=== PATIENT | female | born 1980 | race Caucasian/White ===

== ENCOUNTER 2017-09-14 12:20 | Emergency (ER) | payer MEDICAID, OTHER ==
[~2017-09-14] VITALS: Ht 170.2 cm; Wt 62.0 kg
[2017-09-14 14:50] VITALS: BP 112/61
== END 2017-09-14 16:00 | disposition left against medical advice (07) ==
LOC: ER 12:26
DX: R11.2 Nausea with vomiting, unspecified (principal); R30.0 Dysuria; R52 Pain, unspecified; C71.9 Malignant neoplasm of brain, unspecified; G40.909 Epilepsy, unspecified, not intractable, without status epilepticus; I10 Essential (primary) hypertension
CPT/HCPCS: 99283

== ENCOUNTER 2020-02-16 12:30 | Inpatient (IN) | payer OTHER ==
[~2020-02-16] VITALS: Ht 162.6 cm; Wt 65.8 kg
[2020-02-16 20:00] VITALS: BP 112/66
[2020-02-16 22:00] VITALS: BP 112/66
[2020-02-16] MEDS ORDERED: PROCHLORPERAZINE 10MG/2ML VIAL IV PRN (22:45)
[2020-02-16] MEDS ORDERED: ONDANSETRON HCL 4MG/2ML INJ IV PRN (22:45)
[2020-02-16] MEDS ORDERED: CLONIDINE 0.1MG TABLET PO PRN (22:45)
[2020-02-16] MEDS ORDERED: MAGNESIUM HYDROXIDE 400MG/5ML 30ML UDC PO PRN (22:45)
[2020-02-16] MEDS ORDERED: POLYVINYL ALCOHOL OPHTH DROPS 15ML BOTHEYE PRN (22:45)
[2020-02-16] MEDS ORDERED: MAGNESIUM CITRATE 300ML SOLUTION PO PRN (22:45)
[2020-02-16] MEDS ORDERED: LORAZEPAM 2MG/ML CPJ IV PRN (22:45)
[2020-02-16] MEDS ORDERED: NON FORMULARY PATIENT HOME MED XX SCH ×2 (22:45)
[2020-02-16] MEDS ORDERED: POLYETHYLENE GLYCOL 3350 (17GM) 1 DOSE PACK PO PRN (22:45)
[2020-02-16] MEDS: ACETAMINOPHEN 325MG TABLET PO SCH (23:52)
[2020-02-17] MEDS: OXYCODONE HCL 10MG TABLET SR 12HR PO PRN ×4 (00:35→22:16)
[2020-02-17] MEDS ORDERED: LURA20TA PO (00:51)
[2020-02-17] MEDS ORDERED: LEVE1000 PO (00:51)
[2020-02-17] MEDS ORDERED: LORA2TAB95 PO (00:51)
[2020-02-17] MEDS ORDERED: GABA800T97 PO (00:51)
[2020-02-17] MEDS ORDERED: ONDA4TAB5 PO (00:51)
[2020-02-17] MEDS ORDERED: LACO100T2 PO (00:51)
[2020-02-17] MEDS ORDERED: HYDR-3281 PO (00:51)
[2020-02-17] MEDS ORDERED: LAM2 PO (00:51)
[2020-02-17] MEDS: DIPHENHYDRAMINE HCL/ZINC ACET 28 GM CREAM TOP PRN ×2 (04:38→09:09)
[2020-02-17] MEDS: ACETAMINOPHEN 325MG TABLET PO SCH ×3 (06:28→18:10)
[2020-02-17 07:09] LABS: BASOPHILS % 0.7 % (0.0-2.0); EOSINOPHILS % 2.4 % (0.0-5.0); HEMOGLOBIN. 8.9 g/dL (12.0-16.0); LYMPHOCYTES % 27.7 % (20.0-50.0); MEAN CORPUSCULAR HEMOGLOBIN 33.7 pg (28.0-32.0); MEAN CORPUSCULAR VOLUME 98.7 fL (81.0-99.0); MEAN PLATELET VOLUME 7.1 fl (7.4-10.4); NEUTROPHILS % 56.2 % (40.0-76.0); PLATELET 378 x1000/uL (130-400); RED BLOOD CELL COUNT 2.63 mill/uL (4.2-5.4)
[2020-02-17 07:26] LABS: CHLORIDE 107 mEq/L (98-107)
[2020-02-17 08:00] VITALS: BP 100/65
[2020-02-17] MEDS: LACOSAMIDE 100 MG PO SCH ×2 (09:02→20:49)
[2020-02-17] MEDS: LURASIDONE 20 MG PO SCH (09:03)
[2020-02-17] MEDS: DOCUSATE SODIUM 100MG CAPSULE PO SCH ×2 (09:05→17:00)
[2020-02-17] MEDS: OXYCODONE HCL 5MG TABLET PO PRN ×2 (09:06→18:10)
[2020-02-17] MEDS: LEVETIRACETAM 500MG TABLET PO SCH ×2 (09:07→20:48)
[2020-02-17] MEDS: LAMOTRIGINE 100MG TABLET PO SCH ×2 (09:07→20:48)
[2020-02-17] MEDS: DOXYCYCLINE HYCLATE 100MG CAPSULE PO SCH ×2 (09:08→20:49)
[2020-02-17] MEDS: HEPARIN 5000 UNITS/ML VIAL SUBCUT SCH ×2 (09:08→20:50)
[2020-02-17] MEDS: MUPIROCIN 2% OINT 22GM TOP SCH (09:09)
[2020-02-17] MEDS: POLYETHYLENE GLYCOL 3350 (17GM) 1 DOSE PACK PO SCH (09:10)
[2020-02-17] MEDS ORDERED: ONDANSETRON HCL 4MG TABLET PO PRN (13:00)
[2020-02-17 20:00] VITALS: BP 107/69
[2020-02-17] MEDS: LORAZEPAM 1MG TABLET PO PRN (20:49)
[2020-02-18] MEDS: ACETAMINOPHEN 325MG TABLET PO SCH ×4 (00:14→18:12)
[2020-02-18] MEDS: OXYCODONE HCL 10MG TABLET SR 12HR PO PRN ×2 (05:45→16:34)
[2020-02-18 06:30] LABS: BASOPHILS % 0.7 % (0.0-2.0); EOSINOPHILS % 1.9 % (0.0-5.0); HEMATOCRIT. 26.1 % (36.0-48.0); HEMOGLOBIN. 8.9 g/dL (12.0-16.0); LYMPHOCYTES % 27.8 % (20.0-50.0); MEAN CORPUSCULAR HEMOGLOBIN 33.5 pg (28.0-32.0); MEAN CORPUSCULAR VOLUME 98.7 fL (81.0-99.0); MEAN PLATELET VOLUME 7.3 fl (7.4-10.4); NEUTROPHILS % 56.6 % (40.0-76.0); PLATELET 406 x1000/uL (130-400); RED BLOOD CELL COUNT 2.65 mill/uL (4.2-5.4); RED CELL DISTRIBUTION WIDTH 15.7 % (11.6-14.6)
[2020-02-18 06:55] LABS: CHLORIDE 106 mEq/L (98-107)
[2020-02-18 07:03] LABS: PHOSPHORUS 4.8 mg/dL (2.5-4.9)
[2020-02-18 07:04] LABS: TOTAL IRON BINDING CAPACITY 206 ug/dL (250-450)
[2020-02-18] MEDS: LORAZEPAM 1MG TABLET PO PRN (07:07)
[2020-02-18 07:10] LABS: FOLIC ACID (FOLATE) SERUM 10.1 ng/mL (>5.38)
[2020-02-18] MEDS: LURASIDONE 20 MG PO SCH (07:52)
[2020-02-18 08:00] VITALS: BP 95/50
[2020-02-18] MEDS: POLYETHYLENE GLYCOL 3350 (17GM) 1 DOSE PACK PO SCH (08:50)
[2020-02-18] MEDS: FLUOXETINE HCL 20MG CAPSULE PO SCH (08:50)
[2020-02-18] MEDS: DOCUSATE SODIUM 100MG CAPSULE PO SCH ×2 (08:50→16:34)
[2020-02-18] MEDS: LAMOTRIGINE 100MG TABLET PO SCH ×2 (08:51→20:36)
[2020-02-18] MEDS: MUPIROCIN 2% OINT 22GM TOP SCH (08:51)
[2020-02-18] MEDS: DOXYCYCLINE HYCLATE 100MG CAPSULE PO SCH ×2 (08:51→20:36)
[2020-02-18] MEDS: MAGNESIUM OXIDE 400MG TABLET PO SCH (08:51)
[2020-02-18] MEDS: GABAPENTIN 400MG CAPSULE PO SCH (08:51)
[2020-02-18] MEDS: LEVETIRACETAM 500MG TABLET PO SCH ×2 (08:51→20:36)
[2020-02-18] MEDS: HEPARIN 5000 UNITS/ML VIAL SUBCUT SCH ×2 (08:52→20:43)
[2020-02-18] MEDS: LACOSAMIDE 100 MG PO SCH ×2 (08:53→20:36)
[2020-02-18] MEDS: OXYCODONE HCL 5MG TABLET PO PRN ×2 (11:55→21:03)
[2020-02-18] MEDS: FERROUS SULFATE 325MG TABLET PO SCH ×2 (11:57→16:34)
[2020-02-18] MEDS ORDERED: LACTULOSE 20G/30ML UDC PO PRN (13:15)
[2020-02-18] MEDS ORDERED: NA PHOS,M-B/NA PHOS,DI-BA ENEMA 118ML PR PRN (13:15)
[2020-02-18] MEDS ORDERED: BISACODYL 5MG TABLET PO PRN (13:15)
[2020-02-18 20:00] VITALS: BP 106/72
[2020-02-18] MEDS: BISMUTH SUBSALICYLATE 262 MG/15 ML-120ML BOTTLE PO PRN (20:37)
[2020-02-18 23:06] VITALS: BP 110/72
[2020-02-19] MEDS: ACETAMINOPHEN 325MG TABLET PO SCH ×5 (01:29→23:02)
[2020-02-19] MEDS: LURASIDONE 20 MG PO SCH ×2 (07:48→21:52)
[2020-02-19] MEDS: OXYCODONE HCL 10MG TABLET SR 12HR PO PRN ×2 (07:50→13:24)
[2020-02-19 08:25] VITALS: BP 106/60
[2020-02-19] MEDS: MUPIROCIN 2% OINT 22GM TOP SCH (09:19)
[2020-02-19] MEDS: POLYETHYLENE GLYCOL 3350 (17GM) 1 DOSE PACK PO SCH (09:20)
[2020-02-19] MEDS: LACOSAMIDE 100 MG PO SCH ×2 (09:20→21:53)
[2020-02-19] MEDS: ASCORBIC ACID 500 MG TABLET PO SCH (09:20)
[2020-02-19] MEDS: LEVETIRACETAM 500MG TABLET PO SCH ×2 (09:20→21:50)
[2020-02-19] MEDS: DOCUSATE SODIUM 100MG CAPSULE PO SCH ×2 (09:21→17:20)
[2020-02-19] MEDS: FLUOXETINE HCL 20MG CAPSULE PO SCH (09:21)
[2020-02-19] MEDS: MAGNESIUM OXIDE 400MG TABLET PO SCH (09:21)
[2020-02-19] MEDS: LAMOTRIGINE 100MG TABLET PO SCH ×2 (09:21→21:51)
[2020-02-19] MEDS: FOLIC ACID 1MG TABLET PO SCH (09:21)
[2020-02-19] MEDS: GABAPENTIN 400MG CAPSULE PO SCH (09:21)
[2020-02-19] MEDS: THIAMINE HCL 100MG TABLET PO SCH (09:21)
[2020-02-19] MEDS: FERROUS SULFATE 325MG TABLET PO SCH ×3 (09:21→17:20)
[2020-02-19] MEDS: DOXYCYCLINE HYCLATE 100MG CAPSULE PO SCH ×2 (09:21→21:50)
[2020-02-19] MEDS: MULTIVITAMINS,THER W-MINERALS TABLET PO SCH (09:22)
[2020-02-19] MEDS: HEPARIN 5000 UNITS/ML VIAL SUBCUT SCH ×2 (09:22→21:53)
[2020-02-19 13:20] VITALS: BP 123/75
[2020-02-19] MEDS ORDERED: LORAZEPAM 2MG/ML CPJ IV PRN (13:45)
[2020-02-19] MEDS: LORAZEPAM 1MG TABLET PO PRN ×2 (15:26→23:45)
[2020-02-19] MEDS ORDERED: GADOBENATE DIMEGLUMINE 529 MG/ML 10ML IV ONE (17:43)
[2020-02-19] MEDS: BISMUTH SUBSALICYLATE 262 MG/15 ML-120ML BOTTLE PO PRN (19:42)
[2020-02-19 20:00] VITALS: BP 114/69
[2020-02-19] MEDS: MORPHINE SULFATE 15MG TABLET SR PO SCH (21:51)
[2020-02-19] MEDS: ONDANSETRON HCL 4MG TABLET PO PRN (23:02)
[2020-02-19 23:52] VITALS: BP 106/62
[2020-02-20] MEDS: ACETAMINOPHEN 325MG TABLET PO SCH ×3 (05:54→18:00)
[2020-02-20 07:04] LABS: CHLORIDE 105 mEq/L (98-107)
[2020-02-20 07:26] LABS: BASOPHILS % 1.1 % (0.0-2.0); EOSINOPHILS % 1.9 % (0.0-5.0); HEMATOCRIT. 26.4 % (36.0-48.0); MEAN CORPUSCULAR HEMOGLOBIN 33.6 pg (28.0-32.0); MEAN CORPUSCULAR VOLUME 99.1 fL (81.0-99.0); MEAN PLATELET VOLUME 7.9 fl (7.4-10.4); MONOCYTES % 10.6 % (2.0-8.0); NEUTROPHILS % 49.4 % (40.0-76.0); PLATELET 442 x1000/uL (130-400); RED BLOOD CELL COUNT 2.67 mill/uL (4.2-5.4); RED CELL DISTRIBUTION WIDTH 15.1 % (11.6-14.6)
[2020-02-20 07:47] VITALS: BP 106/65
[2020-02-20] MEDS: OXYCODONE HCL 10MG TABLET SR 12HR PO PRN ×2 (08:09→13:01)
[2020-02-20] MEDS: BISMUTH SUBSALICYLATE 262 MG/15 ML-120ML BOTTLE PO PRN ×2 (08:26→21:47)
[2020-02-20] MEDS: MUPIROCIN 2% OINT 22GM TOP SCH (09:00)
[2020-02-20] MEDS: HEPARIN 5000 UNITS/ML VIAL SUBCUT SCH ×2 (09:00→21:49)
[2020-02-20] MEDS: MAGNESIUM OXIDE 400MG TABLET PO SCH (09:00)
[2020-02-20] MEDS: MORPHINE SULFATE 15MG TABLET SR PO SCH (09:00)
[2020-02-20] MEDS: LACOSAMIDE 100 MG PO SCH ×2 (09:00→21:50)
[2020-02-20] MEDS: GABAPENTIN 400MG CAPSULE PO SCH ×2 (10:29→18:44)
[2020-02-20] MEDS: FLUOXETINE HCL 20MG CAPSULE PO SCH (10:30)
[2020-02-20] MEDS: MULTIVITAMINS,THER W-MINERALS TABLET PO SCH (10:30)
[2020-02-20] MEDS: DOCUSATE SODIUM 100MG CAPSULE PO SCH ×2 (10:30→18:46)
[2020-02-20] MEDS: ASCORBIC ACID 500 MG TABLET PO SCH (10:31)
[2020-02-20] MEDS: LAMOTRIGINE 100MG TABLET PO SCH ×2 (10:31→21:46)
[2020-02-20] MEDS: DOXYCYCLINE HYCLATE 100MG CAPSULE PO SCH ×2 (10:31→21:46)
[2020-02-20] MEDS: LEVETIRACETAM 500MG TABLET PO SCH ×2 (10:32→21:47)
[2020-02-20] MEDS: THIAMINE HCL 100MG TABLET PO SCH (10:32)
[2020-02-20] MEDS: FERROUS SULFATE 325MG TABLET PO SCH ×3 (10:33→18:46)
[2020-02-20] MEDS: FOLIC ACID 1MG TABLET PO SCH (10:33)
[2020-02-20] MEDS: POLYETHYLENE GLYCOL 3350 (17GM) 1 DOSE PACK PO SCH (10:35)
[2020-02-20] MEDS: LORAZEPAM 1MG TABLET PO PRN (11:04)
[2020-02-20] MEDS ORDERED: NALOXONE HCL 0.4 MG/ML 1ML VIAL IV PRN (15:30)
[2020-02-20] MEDS: HYDROCODONE/ACETAMINOPHEN 10/325MG TABLET PO PRN (18:45)
[2020-02-20 20:00] VITALS: BP 99/66
[2020-02-20] MEDS: OXYCODONE HCL 10MG TABLET SR 12HR PO SCH (21:47)
[2020-02-21] MEDS: LORAZEPAM 1MG TABLET PO PRN ×2 (01:46→22:17)
[2020-02-21] MEDS: ACETAMINOPHEN 325MG TABLET PO SCH ×4 (06:00→18:00)
[2020-02-21] MEDS: OXYCODONE HCL 10MG TABLET SR 12HR PO SCH ×3 (06:04→21:31)
[2020-02-21 07:57] VITALS: BP 112/79
[2020-02-21] MEDS: LURASIDONE 20 MG PO SCH (08:00)
[2020-02-21] MEDS: HEPARIN 5000 UNITS/ML VIAL SUBCUT SCH ×2 (09:00→20:49)
[2020-02-21] MEDS: ASCORBIC ACID 500 MG TABLET PO SCH (09:00)
[2020-02-21] MEDS: FOLIC ACID 1MG TABLET PO SCH (09:00)
[2020-02-21] MEDS: FERROUS SULFATE 325MG TABLET PO SCH ×3 (09:00→17:18)
[2020-02-21] MEDS: MULTIVITAMINS,THER W-MINERALS TABLET PO SCH (09:00)
[2020-02-21] MEDS: LACOSAMIDE 100 MG PO SCH ×2 (09:00→20:51)
[2020-02-21] MEDS: THIAMINE HCL 100MG TABLET PO SCH (09:00)
[2020-02-21] MEDS: DOXYCYCLINE HYCLATE 100MG CAPSULE PO SCH ×2 (09:00→20:48)
[2020-02-21] MEDS: MUPIROCIN 2% OINT 22GM TOP SCH (09:00)
[2020-02-21] MEDS: GABAPENTIN 400MG CAPSULE PO SCH ×3 (09:00→17:18)
[2020-02-21] MEDS: LAMOTRIGINE 100MG TABLET PO SCH ×2 (09:00→20:48)
[2020-02-21] MEDS: MAGNESIUM OXIDE 400MG TABLET PO SCH (09:00)
[2020-02-21] MEDS: DOCUSATE SODIUM 100MG CAPSULE PO SCH (09:00)
[2020-02-21] MEDS: POLYETHYLENE GLYCOL 3350 (17GM) 1 DOSE PACK PO SCH (09:00)
[2020-02-21] MEDS: FLUOXETINE HCL 20MG CAPSULE PO SCH (09:00)
[2020-02-21] MEDS: LEVETIRACETAM 500MG TABLET PO SCH ×2 (09:00→20:50)
[2020-02-21] MEDS: HYDROCODONE/ACETAMINOPHEN 10/325MG TABLET PO PRN (09:49)
[2020-02-21] MEDS ORDERED: DOCUSATE SODIUM 100MG CAPSULE PO PRN (14:30)
[2020-02-21 20:00] VITALS: BP 109/69
[2020-02-22] MEDS: HYDROCODONE/ACETAMINOPHEN 10/325MG TABLET PO PRN ×4 (01:00→20:34)
[2020-02-22] MEDS: OXYCODONE HCL 10MG TABLET SR 12HR PO SCH ×3 (05:08→20:23)
[2020-02-22] MEDS: ACETAMINOPHEN 325MG TABLET PO SCH ×5 (06:00→23:16)
[2020-02-22 08:00] VITALS: BP 94/57
[2020-02-22] MEDS: POLYETHYLENE GLYCOL 3350 (17GM) 1 DOSE PACK PO SCH ×2 (09:00→09:43)
[2020-02-22] MEDS: LACOSAMIDE 100 MG PO SCH ×2 (09:42→20:25)
[2020-02-22] MEDS: LURASIDONE 20 MG PO SCH (09:42)
[2020-02-22] MEDS: MUPIROCIN 2% OINT 22GM TOP SCH (09:42)
[2020-02-22] MEDS: LEVETIRACETAM 500MG TABLET PO SCH ×2 (09:43→20:24)
[2020-02-22] MEDS: GABAPENTIN 400MG CAPSULE PO SCH ×3 (09:43→18:04)
[2020-02-22] MEDS: MULTIVITAMINS,THER W-MINERALS TABLET PO SCH (09:43)
[2020-02-22] MEDS: ASCORBIC ACID 500 MG TABLET PO SCH (09:43)
[2020-02-22] MEDS: DOXYCYCLINE HYCLATE 100MG CAPSULE PO SCH ×2 (09:43→20:25)
[2020-02-22] MEDS: FOLIC ACID 1MG TABLET PO SCH (09:43)
[2020-02-22] MEDS: LAMOTRIGINE 100MG TABLET PO SCH ×2 (09:43→20:24)
[2020-02-22] MEDS: THIAMINE HCL 100MG TABLET PO SCH (09:43)
[2020-02-22] MEDS: FERROUS SULFATE 325MG TABLET PO SCH ×3 (09:43→18:04)
[2020-02-22] MEDS: MAGNESIUM OXIDE 400MG TABLET PO SCH (09:43)
[2020-02-22] MEDS: HEPARIN 5000 UNITS/ML VIAL SUBCUT SCH ×2 (09:43→20:26)
[2020-02-22] MEDS: FLUOXETINE HCL 20MG CAPSULE PO SCH (09:43)
[2020-02-22 13:07] LABS: 25-HYDROXY VITAMIN D3 9.1 ng/mL (.)
[2020-02-22] MEDS: BACLOFEN 10MG TABLET PO PRN ×2 (13:15→20:33)
[2020-02-22] MEDS: BISMUTH SUBSALICYLATE 262 MG/15 ML-120ML BOTTLE PO PRN ×3 (16:16→23:05)
[2020-02-22 20:00] VITALS: BP 104/65
[2020-02-23] MEDS: HYDROCODONE/ACETAMINOPHEN 10/325MG TABLET PO PRN ×5 (00:36→22:29)
[2020-02-23] MEDS: OXYCODONE HCL 10MG TABLET SR 12HR PO SCH ×3 (04:56→20:35)
[2020-02-23] MEDS: ACETAMINOPHEN 325MG TABLET PO SCH ×3 (06:12→17:25)
[2020-02-23] MEDS: BACLOFEN 10MG TABLET PO PRN ×3 (07:24→20:38)
[2020-02-23 08:44] VITALS: BP 109/70
[2020-02-23] MEDS: FERROUS SULFATE 325MG TABLET PO SCH ×3 (08:47→17:25)
[2020-02-23] MEDS: DOXYCYCLINE HYCLATE 100MG CAPSULE PO SCH ×2 (08:47→20:34)
[2020-02-23] MEDS: ASCORBIC ACID 500 MG TABLET PO SCH (08:47)
[2020-02-23] MEDS: FLUOXETINE HCL 20MG CAPSULE PO SCH (08:47)
[2020-02-23] MEDS: HEPARIN 5000 UNITS/ML VIAL SUBCUT SCH ×2 (08:47→20:34)
[2020-02-23] MEDS: MULTIVITAMINS,THER W-MINERALS TABLET PO SCH (08:47)
[2020-02-23] MEDS: MAGNESIUM OXIDE 400MG TABLET PO SCH (08:47)
[2020-02-23] MEDS: THIAMINE HCL 100MG TABLET PO SCH (08:47)
[2020-02-23] MEDS: GABAPENTIN 400MG CAPSULE PO SCH ×3 (08:48→17:25)
[2020-02-23] MEDS: LAMOTRIGINE 100MG TABLET PO SCH ×2 (08:48→20:34)
[2020-02-23] MEDS: FOLIC ACID 1MG TABLET PO SCH (08:48)
[2020-02-23] MEDS: LEVETIRACETAM 500MG TABLET PO SCH ×2 (08:48→20:34)
[2020-02-23] MEDS: LURASIDONE 20 MG PO SCH (08:49)
[2020-02-23] MEDS: POLYETHYLENE GLYCOL 3350 (17GM) 1 DOSE PACK PO SCH (08:59)
[2020-02-23] MEDS: LACOSAMIDE 100 MG PO SCH ×2 (09:00→20:38)
[2020-02-23] MEDS: MUPIROCIN 2% OINT 22GM TOP SCH (09:01)
[2020-02-23] MEDS: ONDANSETRON HCL 4MG TABLET PO PRN (10:17)
[2020-02-23] MEDS: BISMUTH SUBSALICYLATE 262 MG/15 ML-120ML BOTTLE PO PRN (14:25)
[2020-02-23] MEDS: LOPERAMIDE HCL 2MG CAPSULE PO PRN (18:53)
[2020-02-23 20:00] VITALS: BP 99/62
[2020-02-24] MEDS: HYDROCODONE/ACETAMINOPHEN 10/325MG TABLET PO PRN ×5 (02:29→22:42)
[2020-02-24] MEDS: OXYCODONE HCL 10MG TABLET SR 12HR PO SCH ×3 (04:33→21:17)
[2020-02-24] MEDS: LOPERAMIDE HCL 2MG CAPSULE PO PRN (04:33)
[2020-02-24] MEDS: ACETAMINOPHEN 325MG TABLET PO SCH ×4 (06:00→17:57)
[2020-02-24 08:00] VITALS: BP 89/52
[2020-02-24] MEDS: HEPARIN 5000 UNITS/ML VIAL SUBCUT SCH ×2 (08:02→21:17)
[2020-02-24] MEDS: MULTIVITAMINS,THER W-MINERALS TABLET PO SCH (08:02)
[2020-02-24] MEDS: THIAMINE HCL 100MG TABLET PO SCH (08:02)
[2020-02-24] MEDS: MAGNESIUM OXIDE 400MG TABLET PO SCH (08:03)
[2020-02-24] MEDS: FOLIC ACID 1MG TABLET PO SCH (08:03)
[2020-02-24] MEDS: FLUOXETINE HCL 20MG CAPSULE PO SCH (08:03)
[2020-02-24] MEDS: LEVETIRACETAM 500MG TABLET PO SCH ×2 (08:03→21:17)
[2020-02-24] MEDS: LAMOTRIGINE 100MG TABLET PO SCH ×2 (08:03→21:17)
[2020-02-24] MEDS: LURASIDONE 20 MG PO SCH (08:07)
[2020-02-24] MEDS: FERROUS SULFATE 325MG TABLET PO SCH ×3 (08:07→16:59)
[2020-02-24] MEDS: ASCORBIC ACID 500 MG TABLET PO SCH (08:07)
[2020-02-24] MEDS: MUPIROCIN 2% OINT 22GM TOP SCH (08:07)
[2020-02-24] MEDS: GABAPENTIN 400MG CAPSULE PO SCH ×3 (08:07→16:59)
[2020-02-24] MEDS: LACOSAMIDE 100 MG PO SCH ×2 (08:08→22:25)
[2020-02-24] MEDS: POLYETHYLENE GLYCOL 3350 (17GM) 1 DOSE PACK PO SCH (08:13)
[2020-02-24] MEDS: ONDANSETRON HCL 4MG TABLET PO PRN (17:57)
[2020-02-24] MEDS: BACLOFEN 10MG TABLET PO PRN (19:00)
[2020-02-24 19:40] VITALS: BP 106/64
[2020-02-24] MEDS: BISMUTH SUBSALICYLATE 262 MG/15 ML-120ML BOTTLE PO PRN (22:10)
[2020-02-24] MEDS ORDERED: LORAZEPAM 1MG TABLET PO PRN (23:15)
[2020-02-25] MEDS: BACLOFEN 10MG TABLET PO PRN ×3 (00:38→17:12)
[2020-02-25] MEDS: ACETAMINOPHEN 325MG TABLET PO SCH ×4 (00:39→17:06)
[2020-02-25] MEDS: HYDROCODONE/ACETAMINOPHEN 10/325MG TABLET PO PRN ×3 (03:41→23:41)
[2020-02-25] MEDS: OXYCODONE HCL 10MG TABLET SR 12HR PO SCH ×3 (06:12→21:27)
[2020-02-25 07:05] LABS: CHLORIDE 106 mEq/L (98-107)
[2020-02-25 07:07] LABS: BASOPHILS % 1.1 % (0.0-2.0); EOSINOPHILS % 2.7 % (0.0-5.0); HEMATOCRIT. 27.7 % (36.0-48.0); HEMOGLOBIN. 9.3 g/dL (12.0-16.0); LYMPHOCYTES % 41.4 % (20.0-50.0); MEAN CORPUSCULAR HEMOGLOBIN 33.4 pg (28.0-32.0); MEAN CORPUSCULAR VOLUME 99.3 fL (81.0-99.0); MEAN PLATELET VOLUME 7.7 fl (7.4-10.4); MONOCYTES % 9.2 % (2.0-8.0); NEUTROPHILS % 45.6 % (40.0-76.0); PLATELET 418 x1000/uL (130-400); RED BLOOD CELL COUNT 2.79 mill/uL (4.2-5.4); RED CELL DISTRIBUTION WIDTH 15.2 % (11.6-14.6)
[2020-02-25 08:07] VITALS: BP 83/44
[2020-02-25] MEDS: POLYETHYLENE GLYCOL 3350 (17GM) 1 DOSE PACK PO SCH (09:00)
[2020-02-25] MEDS: LURASIDONE 20 MG PO SCH (09:19)
[2020-02-25] MEDS: THIAMINE HCL 100MG TABLET PO SCH (09:20)
[2020-02-25] MEDS: MAGNESIUM OXIDE 400MG TABLET PO SCH (09:20)
[2020-02-25] MEDS: MULTIVITAMINS,THER W-MINERALS TABLET PO SCH (09:20)
[2020-02-25] MEDS: LAMOTRIGINE 100MG TABLET PO SCH ×2 (09:20→21:25)
[2020-02-25] MEDS: ASCORBIC ACID 500 MG TABLET PO SCH (09:20)
[2020-02-25] MEDS: FOLIC ACID 1MG TABLET PO SCH (09:20)
[2020-02-25] MEDS: GABAPENTIN 400MG CAPSULE PO SCH ×3 (09:21→17:06)
[2020-02-25] MEDS: FERROUS SULFATE 325MG TABLET PO SCH ×3 (09:21→17:06)
[2020-02-25] MEDS: LEVETIRACETAM 500MG TABLET PO SCH ×2 (09:21→21:27)
[2020-02-25] MEDS: MUPIROCIN 2% OINT 22GM TOP SCH (09:22)
[2020-02-25] MEDS: FLUOXETINE HCL 20MG CAPSULE PO SCH (09:22)
[2020-02-25] MEDS: HEPARIN 5000 UNITS/ML VIAL SUBCUT SCH ×2 (09:22→21:28)
[2020-02-25] MEDS: LACOSAMIDE 100 MG PO SCH ×2 (09:22→21:25)
[2020-02-25 13:29] LABS: CLARITY URINE CLEAR (CLEAR); COLOR URINE YELLOW (YELLOW); KETONES URINE NEGATIVE (NEGATIVE); LEUKOCYTE ESTERASE URINE NEGATIVE (NEGATIVE); NITRITE URINE NEGATIVE (NEGATIVE); OCCULT BLOOD URINE NEGATIVE (NEGATIVE); PROTEIN URINE NEGATIVE (NEGATIVE); UROBILINOGEN URINE 0.2 E.U./dL (0.2-1.0)
[2020-02-25 20:05] VITALS: BP 100/56
[2020-02-26] MEDS: HYDROCODONE/ACETAMINOPHEN 10/325MG TABLET PO PRN ×2 (03:43→10:42)
[2020-02-26] MEDS: OXYCODONE HCL 10MG TABLET SR 12HR PO SCH ×2 (05:59→12:58)
[2020-02-26] MEDS: ACETAMINOPHEN 325MG TABLET PO SCH ×3 (06:05→12:53)
[2020-02-26 07:50] VITALS: BP 104/56
[2020-02-26 08:07] VITALS: BP 104/56
[2020-02-26] MEDS: THIAMINE HCL 100MG TABLET PO SCH (09:01)
[2020-02-26] MEDS: LEVETIRACETAM 500MG TABLET PO SCH (09:02)
[2020-02-26] MEDS: MULTIVITAMINS,THER W-MINERALS TABLET PO SCH (09:02)
[2020-02-26] MEDS: GABAPENTIN 400MG CAPSULE PO SCH ×2 (09:03→12:53)
[2020-02-26] MEDS: MAGNESIUM OXIDE 400MG TABLET PO SCH (09:03)
[2020-02-26] MEDS: HEPARIN 5000 UNITS/ML VIAL SUBCUT SCH (09:03)
[2020-02-26] MEDS: POLYETHYLENE GLYCOL 3350 (17GM) 1 DOSE PACK PO SCH (09:03)
[2020-02-26] MEDS: FLUOXETINE HCL 20MG CAPSULE PO SCH (09:04)
[2020-02-26] MEDS: FOLIC ACID 1MG TABLET PO SCH (09:04)
[2020-02-26] MEDS: FERROUS SULFATE 325MG TABLET PO SCH ×2 (09:04→12:53)
[2020-02-26] MEDS: LAMOTRIGINE 100MG TABLET PO SCH (09:04)
[2020-02-26] MEDS: ASCORBIC ACID 500 MG TABLET PO SCH (09:04)
[2020-02-26] MEDS: LURASIDONE 20 MG PO SCH (09:06)
[2020-02-26] MEDS: MUPIROCIN 2% OINT 22GM TOP SCH (09:47)
[2020-02-26] MEDS: LACOSAMIDE 100 MG PO SCH (10:31)
[2020-02-26] MEDS: ONDANSETRON HCL 4MG TABLET PO PRN (10:41)
[2020-02-26] MEDS ORDERED: LACO100T2 PO (12:17)
[2020-02-26] MEDS ORDERED: LEVE1000 PO (12:17)
[2020-02-26] MEDS ORDERED: BACL-141 PO (12:17)
[2020-02-26] MEDS ORDERED: ONDA4TAB5 PO (12:17)
[2020-02-26] MEDS ORDERED: GABA800T97 PO (12:17)
[2020-02-26] MEDS ORDERED: LURA20TA PO (12:17)
[2020-02-26] MEDS ORDERED: LAM2 PO (12:17)
[2020-02-26] MEDS ORDERED: HYDR-4009 PO (13:01)
[2020-02-26] MEDS ORDERED: OXYC10TA58 PO (13:01)
[2020-02-26] MEDS ORDERED: THIA100T72 PO (13:11)
[2020-02-26] MEDS ORDERED: TOPUD PO (13:11)
[2020-02-26] MEDS ORDERED: LORA-250 PO (13:11)
[2020-02-26] MEDS ORDERED: FERR325T23 PO (13:11)
[2020-02-26] MEDS ORDERED: FLUO20CA39 PO (13:11)
[2020-02-26] MEDS ORDERED: ASCO500T20 PO (13:11)
[2020-02-26] MEDS ORDERED: DOCU-150 PO (13:11)
[2020-02-26 14:32] VITALS: BP 112/61
== END 2020-02-26 16:50 | disposition home health service (06) | DRG 58 ==
LOC: UNDOADMIN 12:30
PROVIDERS: ADMIT Physical Medicine & Rehabilitation Spinal Cord Injury Medicine; ATTEND Family Medicine Adult Medicine
DX: D32.9 Benign neoplasm of meninges, unspecified (principal); T81.30XA Disruption of wound, unspecified, initial encounter; D64.9 Anemia, unspecified; E43 Unspecified severe protein-calorie malnutrition; E87.6 Hypokalemia; F10.20 Alcohol dependence, uncomplicated; F20.9 Schizophrenia, unspecified; F31.9 Bipolar disorder, unspecified; G40.909 Epilepsy, unspecified, not intractable, without status epilepticus; G81.91 Hemiplegia, unspecified affecting right dominant side; K59.00 Constipation, unspecified; G93.89 Other specified disorders of brain; R26.89 Other abnormalities of gait and mobility; Z60.2 Problems related to living alone; R20.0 Anesthesia of skin; Y83.8 Other surgical procedures as the cause of abnormal reaction of the patient, or of later complication, without mention of misadventure at the time of the procedure; R11.0 Nausea; M62.838 Other muscle spasm; R53.81 Other malaise; R73.9 Hyperglycemia, unspecified; R51 Headache; Z79.899 Other long term (current) drug therapy; Z88.8 Allergy status to other drugs, medicaments and biological substances; Z86.14 Personal history of Methicillin resistant Staphylococcus aureus infection; Z86.011 Personal history of benign neoplasm of the brain; Y92.89 Other specified places as the place of occurrence of the external cause; Z87.891 Personal history of nicotine dependence; Z68.24 Body mass index [BMI] 24.0-24.9, adult
CPT/HCPCS: 36415; 70553; 80048; 80053; 81003; 82040; 82306; 82607; 82728; 82746; 83036; 83540; 83550; 83735; 84100; 84134; 84443; 85025; 92523; 92610; 93970; 97110; 97112; 97116; 97162; 97166; 97530; 97535; A9577; J1644; Q0162

== ENCOUNTER 2023-09-11 17:56 | Emergency (ER) | payer MEDICAID, OTHER ==
[~2023-09-11] VITALS: Ht 162.6 cm; Wt 68.0 kg
[~2023-09-11 17:56] MED LIST: ASCO500T20 PO; BACL-141 PO; DOCU-150 PO; FERR325T23 PO; FLUO20CA39 PO; GABA800T97 PO; HYDR-4009 PO; HYDR-4346 PO; LACO100T2 PO; LAM2 PO; LEVE1000 PO; LORA-250 PO; LURA20TA PO; ONDA4TAB5 PO; OXYC10TA58 PO; THIA100T72 PO; TOPUD PO
[2023-09-11 18:03] VITALS: O2SAT 97
[2023-09-11 18:30] VITALS: BP 103/72; PULSE 80; RESP 11; TEMP 98.9
[2023-09-11 19:44] LABS: BASOPHILS % 0.6 % (0.0-2.0); EOSINOPHILS % 4.2 % (0.0-5.0); HEMATOCRIT. 38.3 % (36.0-48.0); HEMOGLOBIN. 12.8 g/dL (12.0-16.0); MEAN CORPUSCULAR HEMOGLOBIN 31.9 pg (28.0-32.0); MEAN CORPUSCULAR HGB CONC 33.3 g/dL (31.0-37.0); MEAN CORPUSCULAR VOLUME 95.7 fL (81.0-99.0); MEAN PLATELET VOLUME 7.6 fl (7.4-10.4); NEUTROPHILS % 50.2 % (40.0-76.0); PLATELET 278 x1000/uL (130-400); RED CELL DISTRIBUTION WIDTH 14.3 % (11.6-14.6)
[2023-09-11 19:57] LABS: ALANINE AMINOTRANSFERASE 17 IU/L (10-49); ALBUMIN 4.1 g/dL (3.2-4.8); ASPARTATE AMINOTRANSFERASE 11 IU/L (<34); BILIRUBIN TOTAL 0.3 mg/dL (0.1-1.0); CALCIUM 8.6 mg/dL (8.7-10.4); CARBON DIOXIDE 29 mEq/L (21-32); CHLORIDE 105 mEq/L (98-107); CREATININE 0.7 mg/dL (0.6-1.0); GLUCOSE 91 mg/dL (70-105); POTASSIUM 3.9 mEq/L (3.5-5.1); PROTEIN TOTAL 7.1 g/dL (6.0-8.3); SODIUM 141 mEq/L (136-145); UREA NITROGEN BLOOD 13 mg/dL (9-23)
[2023-09-11] MEDS: ASPIRIN 325MG EC TABLET PO ONE (20:01)
[2023-09-11 20:02] LABS: TROPONIN I HIGH SENSITIVITY < 4 ng/L (3.0-34)
[2023-09-11 20:07] LABS: HCG SCREEN NEGATIVE
== END 2023-09-11 21:30 | disposition left against medical advice (07) ==
LOC: ER 17:56 → CANBEDREQ 21:08 → ER 21:30
DX: R07.89 Other chest pain (principal); F31.9 Bipolar disorder, unspecified; I10 Essential (primary) hypertension; I25.2 Old myocardial infarction; Z86.73 Personal history of transient ischemic attack (TIA), and cerebral infarction without residual deficits; Z79.899 Other long term (current) drug therapy
CPT/HCPCS: 80053; 84703; 83690; 85025; 84484; 36415; 71045; 93005; 99291; Z7610 ×3